=== PATIENT | female | born 1965 | race Caucasian/White ===

== ENCOUNTER 2020-06-24 21:03 | Emergency (ER) | payer OTHER, SELFPAY ==
[2020-06-24 21:10] VITALS: BP 199/98; PULSE 99; RESP 18; TEMP 36.9; O2SAT 99
[2020-06-24] MEDS: CLINDAMYCIN 600 MG/NS 50 ML 600 MG/50 ML PIGGYBACK 100 MG IVPB (22:39)
[2020-06-24 22:42] LABS: Basophils Percent Auto 0.3 % (0.2-1.2); Eosinophils Absolute Auto 0.2 K/mm3 (0-0.3); Eosinophils Percent Auto 2.2 % (0-4.4); Hematocrit 40.9 % (37.0-47.0); Hemoglobin 13.5 g/dL (12.0-15.0); Immature Granulocyte Absolute 0.07 K/mm3 (0.00-0.031); Immature Granulocyte Percent A 0.8 % (0-0.5); Lymphocytes Absolute Auto 1.82 K/mm3 (0.9-3.2); Lymphocytes Percent Auto 20.8 % (18.3-44.2); Mean Corpuscular Hemoglobin 29.2 pg (26-34); Mean Corpuscular Volume 88.3 fl (80-100); Mean Platelet Volume 10.6 fl (7.4-10.4); Monocytes Absolute Auto 0.6 K/mm3 (0.1-0.6); Monocytes Percent Auto 7.3 % (2.6-8.5); Neutrophils Percent Auto 68.6 % (45.5-73.1); Platelet Count Result 266 k/mm3 (150-375); Red Blood Count 4.63 M/mm3 (4.2-5.4); Red Cell Distribution Width 13.7 % (11.5-14.5); White Blood Count 8.8 K/mm3 (4.5-10.0)
[2020-06-24 22:56] LABS: Alanine Aminotransferase 26 U/L (4-35); Albumin Level 3.9 g/dL (3.5-5.1); Alkaline Phosphatase 150 U/L (38-126); Anion Gap 7 mmol/L (8-16); Aspartate Amino Transferase 21 U/L (14-36); Bilirubin,Total 0.5 mg/dL (0.2-1.3); Blood Urea Nitrogen 31 mg/dL (7-17); Calcium 9.4 mg/dL (8.4-10.2); Carbon Dioxide 27 mmol/L (22-30); Chloride 104 mmol/L (98-107); Estimated CRCL calculation 76 ml/min; Estimated Glomerular Filt Rate > 60; Glucose 319 mg/dL (65-105); Sodium 138 mmol/L (137-145)
--- NOTE | 2020-06-24 23:32 | ED.GENADULT ---
HPI - General Adult General Chief complaint: Wound/Laceration Stated complaint: right leg wound? Time Seen by Provider: 06/24/20 21:48 History of Present Illness HPI narrative: Patient is a 54-year-old female who presents the emergency department with chief complaint of redness of right thigh. Patient states she noted some small bumps that appeared on her right thigh just proximal to the knee. Patient reports that she has history of diabetes and hypertension and states that her blood sugars have not been well controlled. Patient noticed that she had redness in the affected area that has not been improving. The patient denies fluctuance denies localizing abscess patient states that one of the little small bumps did drain some clear liquid. The patient denies fever or chills Related Data Allergies Allergy/AdvReac Type Severity Reaction Status Date / Time No Known Allergies Allergy Verified 06/24/20 21:43 Review of Systems Review of Systems: Narrative: A 10 system review of systems was completed on the patient and is negative except for what is stated in the HPI. Nursing and ancillary documentation was reviewed. [facility] Past Medical History Medical History (Updated 06/24/20 @ 23:35 by Bi Bender MD) Healthy adult Surgical History Surgical History History of hysterectomy Hx of section Social History Social History Smoking status: Former smoker Comments Past medical history significant for hypertension and diabetes Exam Narrative: Exam Narrative: GENERAL: Well-appearing, well-nourished, and in no acute distress. HEAD: Normocephalic, atraumatic. EYES: PERRLA and EOMI. ENT: Nares clear, no rhinorrhea or epistaxis. Mucous membranes moist. NECK: Supple. CHEST: Clear to auscultation. No respiratory distress. HEART: Regular rate and rhythm. No murmur heard. Normal peripheral pulses. ABDOMEN: Soft, nontender, nondistended, normal active bowel sounds. EXTREMITIES: Normal range of motion. No edema. SKIN: Warm, dry, no rash. There is an area of erythema in the right lower extremity on the medial aspect of the thigh just proximal to the right knee. There is no fluctuance there is no purulent drainage at this time. NEURO: No focal deficits. Alert and oriented x3. PSYCH: Normal mood and affect. Course Vital Signs Vital signs: Vital Signs Temperature 36.9 C 06/24/20 21:10 Pulse Rate 99 06/24/20 21:10 Respiratory Rate 18 06/24/20 21:10 Blood Pressure 199/98 H 06/24/20 21:10 Pulse Oximetry 99 06/24/20 21:10 Temperature 36.9 C 06/24/20 21:10 Pulse Rate 99 06/24/20 21:10 Respiratory Rate 18 06/24/20 21:10 Blood Pressure 199/98 H 06/24/20 21:10 Pulse Oximetry 99 06/24/20 21:10 Medical Decision Making Vital Signs Vital Signs: Vital Signs Temperature 36.9 C 06/24/20 21:10 Pulse Rate 99 06/24/20 21:10 Respiratory Rate 18 06/24/20 21:10 Blood Pressure 199/98 H 06/24/20 21:10 Pulse Oximetry 99 06/24/20 21:10 Temperature 36.9 C 06/24/20 21:10 Pulse Rate 99 06/24/20 21:10 Respiratory Rate 18 06/24/20 21:10 Blood Pressure 199/98 H 06/24/20 21:10 Pulse Oximetry 99 06/24/20 21:10 Lab Data Result diagrams: 06/24/20 22:35 06/24/20 22:35 Labs: Lab Results 06/24/20 06/24/20 06/24/20 Range/Units 22:35 22:35 22:35 WBC 8.8 (4.5-10.0) K/mm3 RBC 4.63 (4.2-5.4) M/mm3 Hgb 13.5 (12.0-15.0) g/dL Hct 40.9 (37.0-47.0) % MCV 88.3 (80-100) fl MCH 29.2 (26-34) pg MCHC 33.0 (32-36) g/dl RDW 13.7 (11.5-14.5) % Plt Count 266 (150-375) k/mm3 MPV 10.6 H (7.4-10.4) fl Immature Gran % (Auto) 0.8 H (0-0.5) % Neut % (Auto) 68.6 (45.5-73.1) % Lymph % (Auto) 20.8 (18.3-44.2) % [place] % (Auto) 7.3 (2.6-8.5) % Eos % (Auto)
[2020-06-25 00:01] VITALS: BP 189/85; PULSE 89; RESP 16; O2SAT 100
== END 2020-06-25 00:02 | disposition home or self-care (01) ==
PROVIDERS: Emergency Provider Emergency Medicine
DX: L03.115 Cellulitis of right lower limb (principal); Z87.891 Personal history of nicotine dependence
CPT/HCPCS: 36415; 80053; 83605; 85025; 87040; 96374; 99284

== ENCOUNTER 2021-03-22 15:00 | Outpatient (RCR) | payer OTHER, SELFPAY ==
[2021-03-15 12:28] VITALS: BP_SYST 90
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
--- NOTE | 2021-03-24 09:38 | PCPTNOTE ---
Patient called & cancelled scheduled appointment this date due to not feeling well.
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
--- NOTE | 2021-04-06 13:24 | PCPTNOTE ---
Patient did not show up for scheduled appointment this date. Called and left voicemail about missed appointment and reminded Pt of upcoming appointment on 04/12/21 @13:00.
--- NOTE | 2021-04-08 09:54 | PCPTNOTE ---
Admitting Provider: Attending Provider: Dewey LunaMD Patient:Kary Arteaga Date of :1965 Discharge Summary Patient has not returned for any further treatments since 03/22/2021, therefore she will be discharged at this time. She is having transportation problems for attending therapy. She cancelled her remaining therapy visits. Patient?s initial visit was on 03/15/2021 12:30 and she had a total of 2 visits with 4 missed visits. . The goals have been not met at this time due to limited therapy visits. Thank you for referring this patient to [facility]. Please review, sign, date and return this discharge summary HARINDER. I have been updated about the patient's current status and I agree with discharge from the above service at this time. Referring Physician Date
== END 2021-04-08 14:12 | disposition home or self-care (01) ==
LOC: ANHPT 15:00
PROVIDERS: Visit Provider Orthopaedic Surgery Sports Medicine
DX: Z47.89 Encounter for other orthopedic aftercare (principal)
CPT/HCPCS: 97110; 97140; 97163

== ENCOUNTER 2023-03-19 16:10 | Outpatient (CLI) | payer OTHER, SELFPAY ==
--- NOTE | ~2023-03-19 | US_ITS ---
EXAMINATION: US venous doppler [facility] DATE: 03/19/2023 17:09 INDICATION: Bilateral lower limb pain TECHNIQUE: Grayscale ultrasound images without and with compression and Doppler ultrasound images of the bilateral lower extremity veins were obtained. COMPARISON: None. FINDINGS: The visualized portions of right common femoral vein, profunda (deep) femoral vein, femoral vein, pop liteal vein, posterior tibial veins, peroneal veins, gastrocnemius vein and greater saphenous vein ou tflow are patent. The visualized portions of left common femoral vein, profunda femoral vein, femoral vein, popliteal v ein, posterior tibial veins, peroneal veins, gastrocnemius vein and greater saphenous vein outflow ar e patent. IMPRESSION: 1. No deep venous thrombosis in either lower limb. Reviewed, dictated and finalized at location A.
== END 2023-03-19 16:11 | disposition home or self-care (01) ==
PROVIDERS: PCP Physician Assistant; Visit Provider Physician Assistant
DX: M79.671 Pain in right foot (principal)
CPT/HCPCS: 93970

== ENCOUNTER 2023-04-04 14:58 | Emergency (ER) | payer OTHER, SELFPAY ==
[2023-04-04 15:02] VITALS: BP 150/93; PULSE 95; RESP 16; TEMP 37; O2SAT 100
[2023-04-04 15:11] LABS: Glucose Point of Care 222 mg/dl (65-105)
--- NOTE | 2023-04-04 16:24 | ED.GENADULT ---
HPI - General Adult General Chief complaint: Skin/Abscess/Foreign Body Stated complaint: diabetic sores to feet Time Seen by Provider: 04/04/23 15:37 History of Present Illness HPI narrative: Patient is a 57-year-old female who presents ER with redness to her feet bilaterally. Patient has history of diabetes. Reports that she had to go to a over the weekend and wore some shoes. Anytime she wear shoes her feet begin to turn red and if she takes them off and does cool water baths they improved. She has scabs in a circular area around the feet. No lymphangitic streaking. No fevers or chills or sweats. No gangrene. Reports blood sugars have been poorly monitored. Patient has chronic neuropathy and reports that her pain has been poorly controlled by her PCP. She has tried gabapentin in the past and is not on anything currently. Related Data Allergies Allergy/AdvReac Type Severity Reaction Status Date / Time No Known Allergies Allergy Verified 04/04/23 15:09 Review of Systems Constitutional: Constitutional: Reports no additional constitutional complaints Cardiovascular: Cardiovascular: Reports no additional cardiovascular complaints Respiratory: Respiratory: Reports no additional respiratory complaints Gastrointestinal: Gastrointestinal: Reports no additional gastrointestinal complaints Musculoskeletal: Musculoskeletal: Denies arthralgias and Denies joint swelling Integumentary/Breasts: Skin/Breast: Denies pruritus, Reports erythema, Reports rash and Reports skin ulcer Neurologic: Denies headache(s), Denies focal weakness and Denies numbness PMFSH Past Medical History Medical History (Updated 04/04/23 @ 19:05 by Edwin Dupree MD) Diabetes Surgical History Surgical History History of hysterectomy Hx of section Social History Social History Smoking status: Former smoker Exam Narrative: GENERAL: Well-appearing, well-nourished, and in no acute distress. HEAD: Normocephalic, atraumatic. CHEST: Clear to auscultation. No respiratory distress. HEART: Regular rate and rhythm. Normal peripheral pulses. EXTREMITIES: Normal range of motion. No edema. Pulses in feet intact. SKIN: Warm, dry. Bilateral feet with red blanching skin that is not warm, there are scabs in a pattern that is consistent with wearing sandals or a sock or tight fitting shoe. No gangrene. The skin is flaking. NEURO: Alert and oriented x3. PSYCH: Normal mood and affect. Course Course Emergency Course: Feel patient has tinea pedis and will be treated as so. Recommend follow-up with PCP. Vital Signs Vital signs: Vital Signs Temperature 98.6 F 04/04/23 15:02 Pulse Rate 95 04/04/23 15:02 Respiratory Rate 16 04/04/23 15:02 Blood Pressure 150/93 H 04/04/23 15:02 Pulse Oximetry 100 04/04/23 15:02 Oxygen Delivery Room Air 04/04/23 15:02 Temperature 97.8 F 04/04/23 16:38 Pulse Rate 98 04/04/23 16:38 Respiratory Rate 18 04/04/23 16:38 Blood Pressure 116/73 04/04/23 16:38 Pulse Oximetry 100 04/04/23 16:38 Oxygen Delivery Room Air 04/04/23 15:02 Medical Decision Making Vital Signs Vital Signs: Vital Signs Temperature 98.6 F 04/04/23 15:02 Pulse Rate 95 04/04/23 15:02 Respiratory Rate 16 04/04/23 15:02 Blood Pressure 150/93 H 04/04/23 15:02 Pulse Oximetry 100 04/04/23 15:02 Oxygen Delivery Room Air 04/04/23 15:02 Temperature 97.8 F 04/04/23 16:38 Pulse Rate 98 04/04/23 16:38 Respiratory Rate 18 04/04/23 16:38 Blood Pressure 116/73 04/04/23 16:38 Pulse Oximetry 100 04/04/23 16:38 Oxygen Delivery Room Air 04/04/23 15:02 Lab Data Labs: Lab Results 04/04/23 Range/Units 15:08 POC Capillary Glucose 222 H (65-105) mg/dl Discharge Plan Discharge Clinical Impression: Ti
[2023-04-04 16:38] VITALS: BP 116/73; PULSE 98; RESP 18; TEMP 36.6; O2SAT 100
== END 2023-04-04 16:40 | disposition home or self-care (01) ==
PROVIDERS: Emergency Provider Emergency Medicine; PCP Physician Assistant
DX: B35.3 Tinea pedis (principal); E11.9 Type 2 diabetes mellitus without complications; Z90.710 Acquired absence of both cervix and uterus
CPT/HCPCS: 82948; 99283

== ENCOUNTER 2023-04-10 17:20 | Emergency (ER) | payer OTHER, SELFPAY ==
[2023-04-10 17:34] VITALS: BP 100/82; PULSE 94; RESP 18; TEMP 36.9; O2SAT 100
--- NOTE | 2023-04-10 17:50 | ED.WOUNDLAC ---
HPI - Wound/Laceration General Chief Complaint: Wound/Laceration Stated Complaint: Wounds On Feet Time Seen by Provider: 04/10/23 17:50 Source: patient, RN notes reviewed and old records reviewed Mode of arrival: ambulatory Limitations: no limitations History of Present Illness HPI narrative: 57-year-old female with a history of diabetes presents to the [facility] with unhealing wounds to her bilateral feet. Patient was evaluated in the ER on the 04 of April. Patient reports worsening redness, discoloration to the toes. Increased pain and coolness to her toes. Patient has a faint pulse bilateral pedal All 10 toes are cool to touch. Unable to assess for capillary refill. Patient states that she does not have time to go the ER, is working on her mother's , states she just wants more cream for her foot. Multiple open sores, scabbed over areas Patient's blood sugar is elevated at 252. Related Data Home Medications Medication Instructions Recorded Confirmed metformin 500 mg tablet mg 04/10/23 Allergies Allergy/AdvReac Type Severity Reaction Status Date / Time No Known Allergies Allergy Verified 04/10/23 17:33 Review of Systems Review of Systems: All systems reviewed & are unremarkable except as noted in HPI and below Constitutional: Constitutional: Reports no additional constitutional complaints Eyes: Eyes: Reports no additional eye complaints ENT: Reports system reviewed and no additional complaints, except as documented Cardiovascular: Cardiovascular: Reports no additional cardiovascular complaints, Denies chest pain and Denies dyspnea Respiratory: Respiratory: Reports no additional respiratory complaints, Denies chest congestion, Denies cough and Denies dyspnea Gastrointestinal: Gastrointestinal: Reports no additional gastrointestinal complaints, Denies abdominal pain, Denies nausea and Denies vomiting Musculoskeletal: Musculoskeletal: Reports no additional musculoskeletal complaints Integumentary/Breasts: Skin/Breast: Reports as per HPI Neurologic: Reports system reviewed and no additional complaints, except as documented Psychiatric: Psychiatric: Reports no additional psychiatric complaints Allergic/Immunologic: Allergic/Immunologic: Reports no additional allergic/immunologic complaints [facility] Past Medical History Medical History Diabetes Surgical History Surgical History History of hysterectomy Hx of section Social History Social History Smoking status: Former smoker Comments At the time of my signature, I reviewed and agree with the nursing past medical, surgical, social, and family history. There is no relevant family history pertinent to the patient complaint. Exam Const: General: cooperative, no acute distress, well developed, alert, ill appearing chronically, uncomfortable and well nourished Nutritional Appearance: well nourished Orientation/consciousness: patient oriented x3 Limitations: no limitations HENMT: Head: normal to inspection Ears: hearing grossly normal bilaterally and external ears normal Face/Nose/Sinus: Normal external nose present, Normal nares present, Normal nasal mucous membranes and turbinates present, normal facial exam and face symmetric Face and sinus: normal facial exam and face symmetric Eyes: General: appearance normal, both eyes and all related structures Alignment and Position: alignment normal Periorbital: periorbital findings normal Pupils: Equal, round and reactive pupils present EOM: EOMs intact bilaterally Neck: Neck: normal visual inspection, full ROM, no lymphadenopathy and no meningeal signs Chest: Chest palpation & inspection: normal inspection of the chest Resp: Effort & Inspection: normal respiratory effort and able to speak in complete sentences Cardio:
[2023-04-10 18:39] LABS: Glucose Point of Care 252 mg/dl (65-105)
== END 2023-04-10 18:01 | disposition left against medical advice (07) ==
LOC: EXPCOLL 17:22
PROVIDERS: Emergency Provider Nurse Practitioner; PCP Physician Assistant
DX: E11.628 Type 2 diabetes mellitus with other skin complications (principal); L03.116 Cellulitis of left lower limb; L03.115 Cellulitis of right lower limb; Z79.84 Long term (current) use of oral hypoglycemic drugs
CPT/HCPCS: 82948; 99212; G0463